=== PATIENT | female | born 1970 | race African-American/Black ===

== ENCOUNTER → 2018-07-08 | Outpatient (CLI) | payer OTHER ==
[~2018-07-08] MED LIST: CITA-105; CLON0.5T3; NAPR-243 PO; QUET100T; TRAZ50TA67; TRM50T PO
--- NOTE | 2018-07-08 19:01 | Diagnostic Imaging Report ---
INDICATION: Low back pain and left knee pain. TIME OF EXAMINATION: 11:08 AM. FINDINGS: Two views of the left knee show normal alignment. There is mild medial compartmental degenerative change with slight joint space narrowing and marginal spurring. No fracture, dislocation, or effusion is seen. IMPRESSION: Mild medial compartmental degenerative change. No acute bony abnormality is detected. Dictated by: Dictated on workstation # [id number]
--- NOTE | 2018-07-08 19:01 | Diagnostic Imaging Report ---
INDICATION: Low back pain and left knee pain. TIME OF EXAMINATION: 11:07 AM. FINDINGS: Two views of the lumbar spine demonstrate normal curvature and alignment. The vertebral body heights are maintained. No acute compression fracture is seen. There is degenerative disc disease at L5-S1 with disc space narrowing, marginal spurring, and vacuum disc phenomena. IMPRESSION: Spondylosis. No acute bony abnormality is detected. Dictated by: Dictated on workstation # [id number]
== END ==
LOC: RAD 10:50
PROVIDERS: ATTEND Surgery
DX: Z02.71 Encounter for disability determination (principal); M17.12 Unilateral primary osteoarthritis, left knee; M47.816 Spondylosis without myelopathy or radiculopathy, lumbar region
CPT/HCPCS: 72100; 73560

== ENCOUNTER → 2018-12-31 | Outpatient (CLI) | payer OTHER ==
--- NOTE | 2018-12-31 11:03 | Diagnostic Imaging Report ---
INDICATION: Right knee pain AP and lateral views of the right knee are obtained. There is no evidence of acute fracture or malalignment. No significant joint fluid is identified. There is mild medial marginal spurring. Small ossific fragment is seen medial to the medial femoral condyle which could be related to old medial collateral ligamentous injury. IMPRESSION: Mild degenerative findings involving primarily the medial compartment of the knee joint which may be related to old injury. Otherwise, no acute abnormalities identified. Dictated by: Dictated on workstation # [id number]
== END ==
LOC: RAD 10:31
PROVIDERS: ATTEND Surgery
DX: Z02.71 Encounter for disability determination (principal); M17.11 Unilateral primary osteoarthritis, right knee; F43.11 Post-traumatic stress disorder, acute; F41.9 Anxiety disorder, unspecified; F32.9 Major depressive disorder, single episode, unspecified
CPT/HCPCS: 73560